=== PATIENT | female | born 1950 | race Caucasian/White ===

== ENCOUNTER 2024-05-04 11:16 | Outpatient (CLI) | payer MEDICARE | END 2024-05-04 11:17 | disposition home or self-care (01) | LOC: BICRAD 11:16 | PROVIDERS: ATTEND Family Medicine | DX: M16.0 Bilateral primary osteoarthritis of hip (principal); M46.1 Sacroiliitis, not elsewhere classified; M47.816 Spondylosis without myelopathy or radiculopathy, lumbar region | CPT/HCPCS: 72110 ==